=== PATIENT | male | born 1950 | race Caucasian/White ===

== ENCOUNTER 2018-11-05 13:25 | Inpatient (IN) | payer MEDICARE, OTHER ==
[2018-11-05] MEDS ORDERED: SODIUM CHLORIDE 0.9% 1,000 ML IV STA (13:44)
--- NOTE | 2018-11-05 13:49 | ED ---
Abdominal Pain HPI - General Stated Complaint: abd distension Time Seen by Provider: 11/05/18 13:33 Source: RN notes reviewed, old records reviewed - History of Present Illness Initial Comments: Patient is a 58 rolled male who presents emergency Department today with complaints of abdominal distention. He has a history of cirrhosis. Patient reports that he has been following with Dr. Campoverde. He reports he has never had paracentesis done. He reports that he was supposed to have this scheduled for later on this week but he will not be able to go to that appointment. He states that he became short of breath due to increased fullness of his abdomen. He reports he's been dealing with ascites for the past 5 months. Patient states that he has had pain medication and he is currently out of his [place]. Patient reports that his abdominal pain is a 3 out of 10. He does report normal urination and bowel habits. - Related Data Home Medications Medication Instructions Recorded Confirmed No Known Home Medications 11/05/18 11/05/18 Allergies Allergy/AdvReac Type Severity Reaction Status Date / Time No Known Allergies Allergy Verified 11/05/18 14:31 Review of Systems ROS Statement: Those systems with pertinent positive or pertinent negative responses have been documented in the HPI. ROS Other: All systems not noted in ROS Statement are negative. General Exam - General Exam Comments Initial Comments: This is a 68-year-old male. Alert and oriented. No significant distress. General appearance: alert, in no apparent distress Head exam: Present: atraumatic, normocephalic, normal inspection Eye exam: Present: normal appearance, PERRL, EOMI. Absent: scleral icterus, conjunctival injection, periorbital swelling ENT exam: Present: normal exam, mucous membranes moist Neck exam: Present: normal inspection Respiratory exam: Present: normal lung sounds bilaterally. Absent: respiratory distress, wheezes, rales, rhonchi, stridor Cardiovascular Exam: Present: regular rate, normal rhythm, normal heart sounds. Absent: systolic murmur, diastolic murmur, rubs, gallop, clicks GI/Abdominal exam: Present: soft, distended, normal bowel sounds. Absent: tenderness, guarding, rebound, rigid Extremities exam: Present: normal inspection, full ROM, normal capillary refill , pedal edema (4+ bilateral pedal edema). Absent: tenderness, joint swelling, calf tenderness Neurological exam: Present: alert, oriented X3, CN II-XII intact Psychiatric exam: Present: normal affect, normal mood Skin exam: Present: warm, dry, intact, normal color. 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 Patient reports that he's been managed with diuretics that his abdominal distention and pain is getting worse. He complains of shortness of breath. At this time he does have significant distention. Patient's has bilateral pedal edema. KUB x-ray does show also evidence of a right-sided pleural effusion. Patient's labwork was reviewed.White blood cell count 16 4. RBCs 3.3. Hemoglobin 10.4. PT 12.7. INR 1.2. Sodium 143 potassium 3.7. Chloride 111. CO2 is 25. BUN is 19 creatinine 0.94. Bilirubin is 1.8. AST ALT and alk phos are within normal limits. Lipase is elevated at 578. Urinalysis shows white blood cells and blood cells leukocyte esterase. We'll culture the urine. At this time Frontier the Patient for ascites with consult interventional radiology for likely paracentesis. Patient was informed that he'll likely need repeat paracentesis. He states he does not have available transportation. Patient may likely need a consult to social work. - Lab Data Result diagrams: 11/05/18 14:09 11/05/18 14:09 Lab Results 11/05/18 11/05/18 11/05/18 Range/Units 14:09 14:09 14:09 WBC 6.4 (3.8-10.6) k/uL RBC 3.31 L (4.30-5.90) m/uL Hgb 10.4 L (13.0-17.5) gm/dL Hct 31.9 L (39.0-53.0) % MCV 96.2 (80.0-100.0) fL MCH 31.3 (25.0-35.0) pg MCHC 32.5 (31.0-37.0) g/dL RDW 15.3 (11.5-15.5) % Plt Count 125 L (150-450) k/uL Neutrophils % 79 % Lymphocytes % 9 % Monocytes % 8 % Eosinophils % 2 % Basophils % 1 % Neutrophils # 5.1 (1.3-7.7) k/uL Lymphocytes # 0.6 L (1.0-4.8) k/uL Monocytes # 0.5 (0-1.0) k/uL Eosinophils # 0.1 (0-0.7) k/uL Basophils # 0.1 (0-0.2) k/uL Hypochromasia Slight PT 12.7 H (9.0-12.0) sec INR 1.2 H (<1.2) APTT 25.9 (22.0-30.0) sec Sodium 143 (137-145) mmol/L Potassium 3.7 (3.5-5.1) mmol/L Chloride 111 H (98-107) mmol/L Carbon Dioxide 25 (22-30) mmol/L Anion Gap 7 mmol/L BUN 19 (9-20) mg/dL Creatinine 0.94 (0.66-1.25) mg/dL Est GFR (CKD-EPI)AfAm >90 (>60 ml/min/1.73 sqM) Est GFR (CKD-EPI)NonAf 85 (>60 ml/min/1.73 sqM) Glucose 121 H (74-99) mg/dL Calcium 8.2 L (8.4-10.2) mg/dL Total Bilirubin 1.8 H (0.2-1.3) mg/dL AST 49 (17-59) U/L ALT 33 (21-72) U/L Alkaline Phosphatase 90 (38-126) U/L Total Protein 6.8 (6.3-8.2) g/dL Albumin 2.5 L (3.5-5.0) g/dL Amylase 84 (30-110) U/L Lipase 578 H (23-300) U/L Urine Color Urine Appearance (Clear) Urine pH (5.0-8.0) Ur Specific Glenn (1.001-1.035) Urine Protein (Negative) Urine Glucose (UA) (Negative) Urine Ketones (Negative) Urine Blood (Negative) Urine Nitrite (Negative) Urine Bilirubin (Negative) Urine Urobilinogen (<2.0) mg/dL Ur Leukocyte Esterase (Negative) Urine RBC (0-5) /hpf Urine WBC (0-5) /hpf Calcium Oxalate Crystal (None) /hpf Urine Bacteria (None) /hpf Urine Mucus (None) /hpf 11/05/18 Range/Units 15:07 WBC (3.8-10.6) k/uL RBC (4.30-5.90) m/uL Hgb (13.0-17.5) gm/dL Hct (39.0-53.0) % MCV (80.0-100.0) fL MCH (25.0-35.0) pg MCHC (31.0-37.0) g/dL RDW (11.5-15.5) % Plt Count (150-450) k/uL Neutrophils % % Lymphocytes % % Monocytes % % Eosinophils % % Basophils % % Neutrophils # (1.3-7.7) k/uL Lymphocytes # (1.0-4.8) k/uL Monocytes # (0-1.0) k/uL Eosinophils # (0-0.7) k/uL Basophils # (0-0.2) k/uL Hypochromasia PT (9.0-12.0) sec INR (<1.2) APTT (22.0-30.0) sec Sodium (137-145) mmol/L Potassium (3.5-5.1) mmol/L Chloride (98-107) mmol/L Carbon Dioxide (22-30) mmol/L Anion Gap mmol/L BUN (9-20) mg/dL Creatinine (0.66-1.25) mg/dL Est GFR (CKD-EPI)AfAm (>60 ml/min/1.73 sqM) Est GFR (CKD-EPI)NonAf (>60 ml/min/1.73 sqM) Glucose (74-99) mg/dL Calcium (8.4-10.2) mg/dL Total Bilirubin (0.2-1.3) mg/dL AST (17-59) U/L ALT (21-72) U/L Alkaline Phosphatase (38-126) U/L Total Protein (6.3-8.2) g/dL Albumin (3.5-5.0) g/dL Amylase (30-110) U/L Lipase (23-300) U/L Urine Color Yellow Urine Appearance Clear (Clear) Urine pH 5.5 (5.0-8.0) Ur Specific Glenn 1.020 (1.001-1.035) Urine Protein Trace H (Negative) Urine Glucose (UA) Negative (Negative) Urine Ketones Negative (Negative) Urine Blood Trace H (Negative) Urine Nitrite Negative (Negative) Urine Bilirubin Negative (Negative) Urine Urobilinogen 2.0 (<2.0) mg/dL Ur Leukocyte Esterase Small H (Negative) Urine RBC 8 H (0-5) /hpf Urine WBC 10 H (0-5) /hpf Calcium Oxalate Crystal Occasional H (None) /hpf Urine Bacteria Rare H (None) /hpf Urine Mucus Rare H (None) /hpf - Radiology Data Radiology results: report reviewed Overall nonspecific but fever nonobstructive bowel gas pattern. Running ascites with moderate right size pleural effusion. Disposition Clinical Impression: Ascites, Pleural effusion, History of cirrhosis of liver Disposition: ADMITTED IP TO THIS HOSP Condition: Good Is patient prescribed a controlled substance at d/c from ED?: No Referrals: None,Stated [REFERRING] - 1-2 days Time of Disposition: 15:34
[2018-11-05 14:31] LABS: Basophils # (A) 0.1 k/uL (0-0.2); Basophils % (A) 1 %; Eosinophils # (A) 0.1 k/uL (0-0.7); Eosinophils % (A) 2 %; HCT 31.9 % (39.0-53.0); HGB 10.4 gm/dL (13.0-17.5); Hypochromasia Slight; Lymphocytes # (A) 0.6 k/uL (1.0-4.8); Lymphocytes % (A) 9 %; MCH 31.3 pg (25.0-35.0); MCHC 32.5 g/dL (31.0-37.0); MCV 96.2 fL (80.0-100.0); Mean Platelet Volume 7.7; Monocytes # (A) 0.5 k/uL (0-1.0); Monocytes % (A) 8 %; Neutrophils # (A) 5.1 k/uL (1.3-7.7); Neutrophils % (A) 79 %; Platelet Count 125 k/uL (150-450); RBC 3.31 m/uL (4.30-5.90); RDW 15.3 % (11.5-15.5); WBC 6.4 k/uL (3.8-10.6)
[2018-11-05 14:37] LABS: INR 1.2 (<1.2); Partial Thromboplastin Time 25.9 sec (22.0-30.0); Prothrombin Time 12.7 sec (9.0-12.0)
[2018-11-05 14:39] LABS: ALT 33 U/L (21-72); AST 49 U/L (17-59); Albumin 2.5 g/dL (3.5-5.0); Alkaline Phosphatase 90 U/L (38-126); Amylase 84 U/L (30-110); Anion Gap 7 mmol/L; Blood Urea Nitrogen 19 mg/dL (9-20); Calcium 8.2 mg/dL (8.4-10.2); Carbon Dioxide 25 mmol/L (22-30); Chloride 111 mmol/L (98-107); Glucose 121 mg/dL (74-99); Lipase 578 U/L (23-300); Potassium 3.7 mmol/L (3.5-5.1); Sodium 143 mmol/L (137-145); Total Bilirubin 1.8 mg/dL (0.2-1.3); Total Protein 6.8 g/dL (6.3-8.2)
--- NOTE | 2018-11-05 14:57 | XR ---
EXAMINATION TYPE: XR KUB DATE OF EXAM: 11/05/2018 2:44 PM CLINICAL HISTORY: Abdominal distention and shortness of breath. History of ascites and cirrhosis. TECHNIQUE: Two Upright KUB images of the abdomen are obtained. COMPARISON: None. FINDINGS: There is some paucity of bowel gas. Visualized gas is noted in nondistended small and large bowel loops. There is partial visualization of suspected moderate size right pleural effusion. Liver margin not well visualized. Bulging of flanks suggests underlying ascites. No pneumoperitoneum is pr esent. Multilevel spurring and spine is seen. There is moderate narrowing in both hip joints. IMPRESSION: Overall nonspecific but favor nonobstructive bowel gas pattern. Suspect underlying ascites with moder ate size right pleural effusion.
[2018-11-05 15:17] LABS: Appearance,Urine Clear (Clear); Bacteria,Urine Rare /hpf; Bilirubin,Urine Negative (Negative); Blood,Urine Trace (Negative); Calcium Oxalate Crystals,Urine Occasional /hpf; Color,Urine Yellow; Glucose,Urine (UA) Negative (Negative); Ketones,Urine Negative (Negative); Leukocyte Esterase,Urine Small (Negative); Mucus,Urine Rare /hpf; Nitrite,Urine Negative (Negative); PH, Urine 5.5 (5.0-8.0); Protein,Urine Trace (Negative); RBC,Urine 8 /hpf (0-5); WBC,Urine 10 /hpf (0-5)
[2018-11-05] MEDS ORDERED: NALOXONE 0.4 MG/ML 1 ML VIAL IV PRN (15:34)
[2018-11-05] MEDS ORDERED: MORPHINE SULFATE 4 MG/ML SYRINGE IV PRN (15:34)
[2018-11-05] MEDS ORDERED: HYDROmorphone 0.5 MG/0.5 ML SYRINGE IVP PRN (15:34)
[2018-11-05] MEDS ORDERED: LORazepam 2 MG/ML INJ IV PRN (15:34)
[2018-11-05] MEDS ORDERED: ONDANSETRON 4 MG/2 ML VIAL IVP PRN (15:34)
[2018-11-05] MEDS ORDERED: hydrALAZINE HCL 20 MG/ML 1 ML VIAL IVP STA (19:19)
[2018-11-05] MEDS ORDERED: LABETALOL SYRINGE 5 MG/ML IVP STA (20:40)
[2018-11-06] MEDS: SODIUM CHLORIDE 0.9% 1,000 ML IV SCH ×2 (05:53→13:40)
[2018-11-06] MEDS ORDERED: PANTOPRAZOLE 40 MG/10 ML VIAL IV SCH (09:00)
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
[2018-11-06] MEDS ORDERED: SPIRONOLACTONE 25 MG TAB PO SCH (11:15)
[2018-11-06] MEDS ORDERED: FUROSEMIDE 20 MG TAB PO SCH (11:15)
[2018-11-06] MEDS ORDERED: ALBUMIN HUMAN 25% 50 ML in EMPTY BAG 1 BAG IVPB SCH (12:30)
--- NOTE | 2018-11-06 13:01 | US ---
EXAMINATION TYPE: US paracentesis abd w/image DATE OF EXAM: 11/06/2018 COMPARISON: NONE HISTORY: Ascites. PROCEDURE: Maximal barrier technique was utilized. The skin overlying a suitable pocket of fluid was localized with ultrasound and the overlying skin was prepped and draped. Ultrasound was utilized with sterile technique. Lidocaine was used for local anesthesia and a skin albino made with a scalpel. Catheter was advanced under direct ultrasound guidance into a suitable pocket of fluid and approximately 12 liters of serous fluid were removed. Catheter was withdrawn and hemostasis achieved. There is no immediat e complication; the patient is discharged in stable condition. IMPRESSION: STATUS POST ULTRASOUND GUIDED PARACENTESIS FOR PALLIATION OF ASCITES. THIS PROCEDURE WA S PERFORMED BY THE UNDERSIGNED. Specimen sent for laboratory analysis.
[2018-11-06] MEDS: ALBUMIN HUMAN 25% 50 ML in EMPTY BAG 1 BAG IVPB SCH ×6 (13:43→16:01)
[2018-11-06 13:44] LABS: Appearance,BF Hazy; Color,BF Yellow; RBC, Body Fluid 100 /uL
[2018-11-06 13:45] LABS: Nucleated Cells, Body Fluid 16 /uL
[2018-11-06] MEDS: NICOTINE 7MG/24HR PATCH TRANSDERM SCH (15:05)
--- NOTE | 2018-11-06 15:24 | HP ---
HISTORY AND PHYSICAL DATE OF ADMISSION: 11/05/2018 DATE OF SERVICE: 11/06/2018 PRESENTING COMPLAINT: Abdomen distended, short of breath. HISTORY OF PRESENTING COMPLAINT: This is a 68-year-old patient of Dr. Lis Shin, has a known diagnosis of cirrhosis, being followed by Dr. Reynolds. Patient was drinking for many years until about 4 months ago. Also smoked cigarettes that he has cut back on the same. Patient expresses a progressive distention of the abdomen, affecting his breathing, edema. Appetite has been fair. No fever. No chills. No abdominal pain. Earlier today, patient did undergo large volume paracentesis, 12 L was removed, breathing is somewhat better. Still has significant edema. REVIEW OF SYSTEMS: CONSTITUTIONAL: Tired. HEENT None. RESPIRATORY: Short of breath, some wheezing. CARDIOVASCULAR: None. GASTROINTESTINAL: As above. GENITOURINARY: None. MUSCULOSKELETAL: None. DERMATOLOGICAL: Dry skin. HEMATOLOGICAL: Occasional bruising. PSYCHIATRY: None. NEUROLOGICAL: None. PAST MEDICAL HISTORY: Cirrhosis, ascites, glaucoma. PAST SURGICAL HISTORY: Hernia repair, right knee surgery, bilateral inguinal hernia repair, colonoscopy. SOCIAL HISTORY: Patient has been smoking over 50 years, about a pack a day, now down to 4 cigarettes a day. Also been drinking heavily and stopped 4 months ago. Patient lives by himself. FAMILY HISTORY: Diabetes, coronary artery disease. HOME MEDICATIONS: Aldactone. ALLERGIES: None. PHYSICAL EXAMINATION: Vital signs on presentation, temperature 98.1, pulse 86, respiration 19, blood pressure 160/104, repeat 138/99, pulse ox 98% on room air. GENERAL APPEARANCE: Average build, sitting at the edge of the bed, tired-appearing. EYES: Pupils equal, conjunctivae are pale. HEENT: External appearance of nose and ears normal. Oral cavity normal. NECK: JVD unable to assess. Mass not palpable. RESPIRATORY: Effort increased. LUNGS: Diminished breath sounds, minimal wheezing. CARDIOVASCULAR: First and second sounds, no gross edema. ABDOMEN: Distended with small abdominal hernia. Soft, nontender. LYMPHATIC: No lymph node palpable. PSYCHIATRY: Alert and oriented x3. Mood and affect normal. NEUROLOGICAL: Pupils equal. Cranial nerves grossly intact. Power and sensation grossly intact. DERMATOLOGICAL: Dry skin. Slight bruising. INVESTIGATIONS: White count 6.4, hemoglobin 10.4, platelets 125. Protime 12.7, potassium 3.7, BUN 19, creatinine 0.94, total bilirubin 1.8, albumin 2.5. ASSESSMENT: 1. Acute on chronic large symptomatic ascites secondary to alcoholic cirrhosis. 2. Chronic alcoholic cirrhosis. 3. Normocytic anemia due to underlying cirrhosis. 4. Thrombocytopenia due to chronic liver disease. 5. Auto anticoagulation due to underlying cirrhosis with prolonged protime. 6. Hyperbilirubinemia. 7. Hypoalbuminemia due to chronic liver disease. 8. Chronic obstructive pulmonary disease in a current smoker. 9. Chronic nicotine dependence, patient an active cigarette smoker. PLAN: Large volume paracentesis was ordered, 12 L was removed. Patient still has significant edema. Increase Aldactone 100 mg twice a day, Lasix to 40 mg a day. Will put the patient on a low-sodium diet. Patient is counseled about the same. Also put on a fluid restriction of 1500 mL a day. Patient also given nicotine patch and DuoNeb's are added. MMODL / IJN: [id number] /
[2018-11-06] MEDS: FUROSEMIDE 40 MG TAB PO SCH (15:56)
[2018-11-06] MEDS: SPIRONOLACTONE 25 MG TAB PO SCH (15:56)
[2018-11-06] MEDS: IPRATROPIUM-ALBUTEROL 3 ML NEB INHALATION SCH ×3 (16:07→23:38)
--- NOTE | 2018-11-06 18:17 | XR ---
EXAMINATION TYPE: XR chest 2V DATE OF EXAM: 11/06/2018 COMPARISON: NONE HISTORY: Short of breath TECHNIQUE: Frontal and lateral views of the chest are obtained. FINDINGS: There is blunting of the costophrenic angles more on the right side. There is airspace con solidation in the right lower lobe. There is no heart failure. IMPRESSION: Right pleural effusion and right lower lobe pneumonia. Small left pleural effusion. No h eart failure seen.
[2018-11-06 19:30] LABS: Lipase, Body Fluid 25 U/L; Total Protein, Body Fluid 1007 mg/dL
[2018-11-06] MEDS ORDERED: IPRATROPIUM-ALBUTEROL 3 ML NEB INHALATION PRN (23:39)
[2018-11-06] MEDS ORDERED: FUROSEMIDE 10 MG/ML 4 ML VIAL IV STA (23:49)
--- NOTE | 2018-11-07 00:40 | XR ---
EXAM: XR Chest, 1 View CLINICAL HISTORY: ITS.REASON XR Reason: coarse lung sounds with wheeze; decreased O2 TECHNIQUE: Frontal view of the chest. COMPARISON: No relevant prior studies available. FINDINGS: Lungs: See below. Pleural space: Right pleural effusion with lower lobe consolidation. A left pleural effusion and basilar consolidation may also be present to a lesser degree. No pneumothorax. Heart: No pneumomediastinum. Mediastinum: Unremarkable. Bones/joints: No definite fracture. IMPRESSION: 1. Right pleural effusion with lower lobe consolidation. 2. A left pleural effusion and basilar consolidation may also be present to a lesser degree.
[2018-11-07] MEDS: IPRATROPIUM-ALBUTEROL 3 ML NEB INHALATION SCH ×3 (07:04→19:16)
[2018-11-07] MEDS: FUROSEMIDE 40 MG TAB PO SCH (08:40)
[2018-11-07] MEDS: NICOTINE 7MG/24HR PATCH TRANSDERM SCH (08:41)
[2018-11-07] MEDS: SPIRONOLACTONE 25 MG TAB PO SCH ×2 (08:41→15:49)
[2018-11-07 09:37] LABS: INR 1.4 (<1.2); Prothrombin Time 13.8 sec (9.0-12.0)
[2018-11-07 09:41] LABS: Anion Gap 6 mmol/L; Blood Urea Nitrogen 18 mg/dL (9-20); Carbon Dioxide 25 mmol/L (22-30); Chloride 111 mmol/L (98-107); Glucose 119 mg/dL (74-99); Potassium 3.6 mmol/L (3.5-5.1); Sodium 142 mmol/L (137-145)
[2018-11-07] MEDS: PHYTONADIONE ORAL 5 MG/5 ML ORAL.SYRG PO SCH (11:31)
[2018-11-07] MEDS ORDERED: FUROSEMIDE 10 MG/ML 4 ML VIAL IV STA (11:43)
--- NOTE | 2018-11-07 12:24 | P.PN ---
Subjective Progress Note Date: 11/07/18 Principal diagnosis: Liver cirrhosis ascites Status post paracentesis yesterday with 12 L removed. Patient still has a moderate amount of ascites present. Reports abdominal discomfort improvement however patient is now requiring oxygen. Chest x-ray right pleural effusion with lower lobe consolidation. A left pleural effusion basilar consolidation may also be present. Afebrile. SAAG greater than 1.1 consistent with portal hypertension. INR 1.4. BUN 18. Creatinine 0.9. Diuretics adjusted Aldactone 100 mg twice daily. Lasix 40 mg daily. Objective - Vital Signs Vital signs: Vital Signs Temp 98.5 F 11/07/18 07:05 Pulse 88 11/07/18 11:27 Resp 18 11/07/18 07:05 BP 120/55 11/07/18 07:05 Pulse Ox 96 11/07/18 07:05 Intake & Output 11/06/18 11/07/18 11/07/18 18:59 06:59 18:59 Intake Total 350 Output Total 1500 Balance -1150 Intake: Oral 350 Output: Urine 1500 Other: Voiding Method Urinal Urinal # Voids 1 1 - Exam General appearance: The patient is alert, oriented, in no acute distress. HET: Head is normocephalic and atraumatic. Pupils are equal and reactive. Oropharynx is clear without lesions. Neck: Supple without lymphadenopathy. Trachea midline. Heart: S1 S2. Regular rate and rhythm. Lungs: Diminished bilaterally in bases right greater than left Abdomen: Soft, distended with moderate soft ascites with bowel sounds. No peritoneal signs. No palpable organomegaly or masses. Extremities: +2 /+3 bilateral lower extremity edema scrotal edema. Radial and pedal pulses are 2/4 bilaterally. Neurological: No focal deficits. Strength and sensation are grossly intact. - Labs CBC & Chem 7: 11/05/18 14:09 11/07/18 08:52 Labs: Abnormal Lab Results - Last 24 Hours (Table) 11/07/18 11/07/18 Range/Units 08:52 08:52 PT 13.8 H (9.0-12.0) sec INR 1.4 H (<1.2) Chloride 111 H (98-107) mmol/L Glucose 119 H (74-99) mg/dL Calcium 8.0 L (8.4-10.2) mg/dL Microbiology - Last 24 Hours (Table) 11/06/18 11:00 Gram Stain - Preliminary Ascites Fluid Body Fluid Culture - Preliminary 11/05/18 19:00 Urine Culture - Final Urine,Voided Assessment and Plan (1) Abdominal pain Narrative/Plan: 68-year-old male with a history of alcohol liver disease cirrhosis portal hypertension possible underlying chronic hepatitis C presents with worsening ascites dyspnea imaging studies consistent with pleural effusion and abdominal ascites status post therapeutic diagnostic paracentesis. Current Visit: Yes Status: Acute Code(s): R10.9 - UNSPECIFIED ABDOMINAL PAIN SNOMED Code(s): 61434692 (2) Ascites Current Visit: Yes Status: Acute Code(s): R18.8 - OTHER ASCITES SNOMED Code(s): 002212454 (3) History of cirrhosis of liver Current Visit: Yes Status: Acute Code(s): Z87.19 - PERSONAL HISTORY OF OTHER DISEASES OF THE DIGESTIVE SYSTEM SNOMED Code(s): 560462351 (4) Pleural effusion Current Visit: Yes Status: Acute Code(s): J90 - PLEURAL EFFUSION, NOT ELSEWHERE CLASSIFIED SNOMED Code(s): 32466786 (5) Thrombocytopenia Current Visit: Yes Status: Acute Code(s): D69.6 - THROMBOCYTOPENIA, UNSPECIFIED SNOMED Code(s): 177449738 Plan: 1. Patient may benefit from another paracentesis prior to discharge pending his clinical course. 2. Protonix 40 mg daily. 3. Continue diuretics. 4. Low-salt diet. Patient will follow with Dr. Gail Wolfe office in 2-3 weeks. Assessment and plan a care discussed with Dr. Cartwright
[2018-11-07] MEDS: FUROSEMIDE 10 MG/ML 4 ML VIAL IV SCH ×2 (17:08→20:13)
[2018-11-07] MEDS: MAGNESIUM OXIDE 400 MG TAB PO SCH ×2 (17:08→20:13)
[2018-11-08] MEDS: IPRATROPIUM-ALBUTEROL 3 ML NEB INHALATION SCH ×2 (07:16→13:28)
[2018-11-08] MEDS: NICOTINE 7MG/24HR PATCH TRANSDERM SCH (07:45)
[2018-11-08] MEDS: SPIRONOLACTONE 25 MG TAB PO SCH ×2 (07:45→14:45)
[2018-11-08] MEDS: MAGNESIUM OXIDE 400 MG TAB PO SCH ×2 (07:45→14:45)
[2018-11-08] MEDS: PHYTONADIONE ORAL 5 MG/5 ML ORAL.SYRG PO SCH (08:01)
[2018-11-08 08:52] LABS: INR 1.2 (<1.2); Prothrombin Time 12.5 sec (9.0-12.0)
[2018-11-08 09:01] LABS: Calcium 8.2 mg/dL (8.4-10.2); Potassium 3.8 mmol/L (3.5-5.1)
--- NOTE | 2018-11-08 10:47 | P.PN ---
Subjective Progress Note Date: 11/08/18 Principal diagnosis: Liver cirrhosis ascites Status post paracentesis 2 days ago 12 L removed. Patient still has a moderate amount of ascites present. Reports breathing improved. Afebrile. SAAG greater than 1.1 consistent with portal hypertension. INR 1.2. BUN 21. Creatinine 1.0. Receiving Aldactone. Objective - Vital Signs Vital signs: Vital Signs Temp 98.1 F 11/08/18 06:22 Pulse 88 11/08/18 07:30 Resp 18 11/08/18 06:22 BP 124/71 11/08/18 06:22 Pulse Ox 96 11/08/18 06:22 Intake & Output 11/07/18 11/08/18 11/08/18 18:59 06:59 18:59 Intake Total 820 310 Output Total 2300 Balance 820 -1989 Intake: Oral 820 310 Output: Urine 2300 Other: Voiding Method Urinal # Voids 5 0 - Exam General appearance: The patient is alert, oriented, in no acute distress. HET: Head is normocephalic and atraumatic. Pupils are equal and reactive. Oropharynx is clear without lesions. Neck: Supple without lymphadenopathy. Trachea midline. Heart: S1 S2. Regular rate and rhythm. Lungs: Diminished bilaterally in bases. Abdomen: Soft, distended with moderate soft ascites with bowel sounds. No peritoneal signs. No palpable organomegaly or masses. Extremities: +2 /+3 bilateral lower extremity edema scrotal edema. Radial and pedal pulses are 2/4 bilaterally. Neurological: No focal deficits. Strength and sensation are grossly intact. - Labs CBC & Chem 7: 11/05/18 14:09 11/08/18 08:00 Labs: Abnormal Lab Results - Last 24 Hours (Table) 11/08/18 11/08/18 Range/Units 08:00 08:00 PT 12.5 H (9.0-12.0) sec INR 1.2 H (<1.2) Chloride 109 H (98-107) mmol/L BUN 21 H (9-20) mg/dL Calcium 8.2 L (8.4-10.2) mg/dL Microbiology - Last 24 Hours (Table) 11/06/18 11:00 Gram Stain - Preliminary Ascites Fluid Body Fluid Culture - Preliminary Assessment and Plan (1) Abdominal pain Narrative/Plan: 68-year-old male with a history of alcohol liver disease cirrhosis portal hypertension possible underlying chronic hepatitis C presents with worsening ascites dyspnea imaging studies consistent with pleural effusion and abdominal ascites status post therapeutic diagnostic paracentesis. Current Visit: Yes Status: Acute Code(s): R10.9 - UNSPECIFIED ABDOMINAL PAIN SNOMED Code(s): 52372797 (2) Ascites Current Visit: Yes Status: Acute Code(s): R18.8 - OTHER ASCITES SNOMED Code(s): 826767962 (3) History of cirrhosis of liver Current Visit: Yes Status: Acute Code(s): Z87.19 - PERSONAL HISTORY OF OTHER DISEASES OF THE DIGESTIVE SYSTEM SNOMED Code(s): 099872950 (4) Pleural effusion Current Visit: Yes Status: Acute Code(s): J90 - PLEURAL EFFUSION, NOT ELSEWHERE CLASSIFIED SNOMED Code(s): 31135758 (5) Thrombocytopenia Current Visit: Yes Status: Acute Code(s): D69.6 - THROMBOCYTOPENIA, UNSPECIFIED SNOMED Code(s): 464564808 Plan: 1. Recommend on discharge Aldactone 100 mg daily. Lasix 40 mg daily. 2. Return to office next week for reevaluation with Dr. Reynolds. 3. We'll proceed with therapeutic paracentesis today prior to discharge. Low- salt diet. Assessment and plan a care discussed with Dr. Cartwright
--- NOTE | 2018-11-08 10:53 | PN ---
PROGRESS NOTE DATE OF SERVICE: 11/07/2018 PRESENTING COMPLAINT: Short of breath. INTERVAL HISTORY: This patient with cirrhosis, large ascites, status post large volume paracentesis, seen by me yesterday. Still quite a bit short of breath overnight. I gave the patient IV Lasix the night before. This morning, patient still requiring oxygen. I ordered more IV Lasix. Tolerating some diet. Abdomen is distended, but less than before. Edema present. REVIEW OF SYSTEMS: Done for constitutional, cardiovascular, GI, pulmonary; relevant findings as above. CURRENT MEDICATIONS: Current medications are reviewed that include Aldactone 100 mg b.i.d., p.o. Lasix, DuoNeb. PHYSICAL EXAMINATION: On examination, temperature 98.2, pulse 88, respiration 20, blood pressure 107/65, pulse ox 100% on 4 L. GENERAL APPEARANCE: Lying in bed, tired appearing/ EYES: Pupils equal. Conjunctivae normal. NECK: JVD unable to assess. Mass not palpable. RESPIRATORY: Effort increased. LUNGS: Diminished breath sounds. CARDIOVASCULAR: First and second sounds normal. Edema present. ABDOMEN: Distended, soft. Small umbilical hernia. PSYCHIATRY: Alert and oriented x3. Mood and affect is normal. INVESTIGATIONS: Potassium 3.6. BUN and creatinine normal. Chest x-ray film personally reviewed by me shows right pleural effusion. ASSESSMENT: 1. Acute on chronic large symptomatic ascites secondary to alcoholic cirrhosis, status post large volume paracentesis. 2. Chronic alcoholic cirrhosis. 3. Fluid overload due to hypoalbuminemic state. 4. Right pleural effusion due to hypoalbuminemic state. 5. Normocytic anemia due to underlying cirrhosis. 6. Thrombocytopenia due to chronic liver disease. 7. Acute hypoxic respiratory failure due to pulmonary edema and pleural effusion. 8. Auto anticoagulation due to cirrhosis with prolonged pro time. 9. Hyperbilirubinemia. 10.Hypoalbuminemia due to chronic liver disease. 11.Chronic obstructive pulmonary disease in a current smoker. 12.Chronic nicotine dependence, patient is active cigarette smoker. PLAN: The patient will be given 2 more doses of IV Lasix. Repeat electrolytes. Maintain the patient on fluid restriction. Care was discussed with the patient. MMODL / IJN: [id number] /
[2018-11-08 13:06] VITALS: RESP 16
[2018-11-08] MEDS: ALBUMIN HUMAN 25% 50 ML in EMPTY BAG 1 BAG IVPB SCH ×6 (14:03→15:58)
[2018-11-08 14:51] VITALS: BP 100/63; PULSE 65; TEMP 98.1
--- NOTE | 2018-11-08 16:02 | US ---
EXAMINATION TYPE: US paracentesis abd w/image DATE OF EXAM: 11/08/2018 COMPARISON: NONE HISTORY: Ascites. PROCEDURE: Maximal barrier technique was utilized. The skin overlying a suitable pocket of fluid was localized with ultrasound and the overlying skin was prepped and draped. Ultrasound was utilized with sterile technique. Lidocaine was used for local anesthesia and a skin albino made with a scalpel. Catheter was advanced under direct ultrasound guidance into a suitable pocket of fluid and approximately 10.3 lite rs of serous fluid were removed. Catheter was withdrawn and hemostasis achieved. There is no immedi ate complication; the patient is discharged in stable condition. IMPRESSION: STATUS POST ULTRASOUND GUIDED PARACENTESIS FOR PALLIATION OF ASCITES. THIS PROCEDURE WA S PERFORMED BY THE UNDERSIGNED.
--- NOTE | 2018-11-10 08:31 | DS ---
DISCHARGE SUMMARY DATE OF ADMISSION: 11/07/2018 DATE OF DISCHARGE: 11/08/2018 FINAL DIAGNOSES: 1. Acute on chronic large symptomatic ascites secondary to alcoholic cirrhosis status post large volume paracentesis x2. 2. Chronic alcoholic cirrhosis. 3. Fluid overload due to hypoalbuminemic state. 4. Right pleural effusion due to hypoalbuminemic state. 5. Normocytic anemia due to underlying cirrhosis. 6. Thrombocytopenia. 7. Chronic liver disease. 8. Acute hypoxic respiratory failure due to pulmonary edema and pleural effusion. 9. On anticoagulation due to cirrhosis with prolonged protime. 10.Hyperbilirubinemia. 11.Hypoalbuminemia due to chronic liver disease. 12.Chronic obstructive pulmonary disease in a current smoker. 13.Chronic nicotine dependence, patient is active cigarette smoker. CONSULTATIONS: Dr. Cartwright from Gastroenterology. PROCEDURES: Paracentesis times 2, 12 L was removed the first time and 10.3 L was removed the second time. HOSPITAL COURSE: This patient who had been drinking for a long time, nonalcoholic cirrhosis, presents with edema. Very large abdomen. Symptomatic. Paracentesis x2 was carried out. The patient also a smoker, was treated for COPD, also had pulmonary edema, treated with IV Lasix. Doing much better by the time of discharge. Patient was talked to in detail. Also discussed about fluid restriction. Breathing was much improved. PHYSICAL EXAMINATION: Temperature 98.1, pulse 50, respiratory rate 16, blood pressure 100/63, pulse ox 98% on room air. Lungs: Improved air entry. Abdomen is less distended. Psych: AO x3. INVESTIGATIONS: Potassium 3.8, BUN 21, creatinine 1.03. Pro time 12.5. Discussion and discharge planning more than 35 minutes. DISCHARGE MEDICATIONS: 1. Lasix 40 mg a day. 2. DuoNeb t.i.d. 3. Nicotine patch. 4. Aldactone 100 mg b.i.d. Fluid restriction 2000 mL a day and low-sodium diet. FOLLOWUP: Follow up with Dr. Reynolds on November 13, 2018, Dr. Lis Shin in 1 week. [facility] to follow. Discussion and discharge planning more than [address] Lis Shin. MMRHODAL / IJN: [id number] /
== END 2018-11-08 17:26 | disposition home health service (06) | DRG 432 ==
LOC: EC 13:25 → INTOOBSV 15:15 → 4MS4W 15:15 → OBSVTOIN 11-07 08:10
PROVIDERS: ADMIT Hospitalist; ATTEND Hospitalist
PROC: 0W9G3ZZ Drainage of Peritoneal Cavity, Percutaneous Approach (ICD-10-PCS; principal; 2018-11-06)
PROC: 0W9G3ZZ Drainage of Peritoneal Cavity, Percutaneous Approach (ICD-10-PCS; 2018-11-08)
DX: K70.31 Alcoholic cirrhosis of liver with ascites (principal); J96.01 Acute respiratory failure with hypoxia; J90 Pleural effusion, not elsewhere classified; K76.6 Portal hypertension; D64.9 Anemia, unspecified; D69.59 Other secondary thrombocytopenia; E87.70 Fluid overload, unspecified; E88.09 Other disorders of plasma-protein metabolism, not elsewhere classified; J44.9 Chronic obstructive pulmonary disease, unspecified; F17.210 Nicotine dependence, cigarettes, uncomplicated; H40.9 Unspecified glaucoma; F10.20 Alcohol dependence, uncomplicated; B18.2 Chronic viral hepatitis C; R79.1 Abnormal coagulation profile; M10.9 Gout, unspecified; Z82.49 Family history of ischemic heart disease and other diseases of the circulatory system; Z82.5 Family history of asthma and other chronic lower respiratory diseases; Z83.3 Family history of diabetes mellitus
CPT/HCPCS: 36415; 49083; 71045; 71046; 74018; 80048; 80053; 81001; 82042; 82150; 82945; 83615; 83690; 84157; 85025; 85610; 85730; 87070; 87086; 87205; 89050; 94640; 94760; 96361; 96374; 96375; 99285